=== PATIENT | male | born 1955 | race Caucasian/White ===

== ENCOUNTER 2019-05-14 07:14 | Day surgery (SDC) | payer OTHER ==
[~2019-05-14 07:14] MED LIST: ASCO500C PO; ASPI325T8 PO; CHOL500062 PO; CIPROFLOXACIN 0.3% OPHTH SOLUTION 5ML BOTTLE. OS ONE; IV RINGERS,LACTATED 1000ML 1,000 ML IV SCH; KETOROLAC OS; LACT1TAB6 PO; LIDOCAINE 2% JELLY 6ML IN APPLICATOR. OS ONE; METO-247 PO; NIAC500C6 PO; PROPARACAINE 0.5% OPHTH SOLUTION 15ML BOTTLE. OS ONE; UBID200C32 PO; VITA1TAB19 PO
[2019-05-14] MEDS: PHENYLEPHRINE 10% OPHTH SOLUTION 5ML BOTTLE. OS SCH ×3 (07:52→08:02)
[2019-05-14] MEDS: CYCLOPENTOLATE 1% OPTH SOLUTION 2ML BOTTLE. OS SCH ×3 (07:53→08:03)
[2019-05-14] MEDS ORDERED: ERYTHROMYCIN 0.5% OPHTH OINTMENT 1GM TUBE. ONE (07:57)
[2019-05-14] MEDS ORDERED: LIDOCAINE 1% PF 2 ML VIAL. ONE (07:57)
[2019-05-14] MEDS ORDERED: CHONDROIT-SOD-HYALURONATE KIT. ONE (07:58)
[2019-05-14] MEDS ORDERED: PROPOFOL 20 ML IV ONE (09:13)
[2019-05-14] MEDS ORDERED: LIDOCAINE 2% PF 5 ML VIAL. ONE (09:13)
[2019-05-14 09:58] VITALS: BP 163/73
--- NOTE | 2019-05-14 11:30 | OP ---
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 PROCEDURE: Phacoemulsification with posterior chamber lens implant, left eye. ANESTHESIA: Topical with MAC. DESCRIPTION OF PROCEDURE: The patient's dilating and anesthetic drops were applied in the outpatient department and the [place] balloon cuff used for about 10-15 minutes. The patient was then brought to the operating room and positioned on the table and the left eye was prepped and draped in the usual sterile manner for an intraocular procedure. A lid speculum was placed between the eyelids and the operating microscope brought into position. A paracentesis incision was made inferior temporally and an injection of 1% lidocaine was made. This was followed by an injection of Viscoat and then the primary 2.4 mm incision was made temporally. A bent needle and forceps were used to perform a capsulorrhexis without difficulty. The lens nucleus was then hydrodissected and phacoemulsified with the phaco handpiece without difficulty. The remaining cortex was aspirated with the I/A handpiece and polishing was done with the same handpiece as well. The capsular bag was insufflated with Provisc and a posterior chamber multifocal implant was inserted without difficulty. It was rotated to the 180-degree axis. The Provisc was aspirated and the eye was pressurized and the wound checked for leaks and there were none. The speculum and drape were removed and erythromycin ointment instilled in the conjunctival sac and the eye was shielded. The patient was taken to recovery room in satisfactory condition. There were no complications and I will see the patient in several days in my office. K CHASTITY STEVENSON MD DR: ALLISON/[email or web address] JOB#: [id number] / [id number]
== END 2019-05-14 10:30 | disposition home or self-care (01) ==
LOC: SURG 07:14
PROVIDERS: ATTEND Ophthalmology
DX: H25.812 Combined forms of age-related cataract, left eye (principal); I10 Essential (primary) hypertension; E66.9 Obesity, unspecified; Z68.39 Body mass index [BMI] 39.0-39.9, adult; Z72.89 Other problems related to lifestyle
CPT/HCPCS: 66984; C1780; J0171; J2001; J2704; J3490